=== PATIENT | male | born 1990 | race Caucasian/White ===

== ENCOUNTER 2018-04-10 23:19 | Emergency (ER) | payer OTHER ==
[~2018-04-10] VITALS: Ht 180.3 cm; Wt 130.9 kg
[2018-04-10 23:23] VITALS: BP 134/65; PULSE 91; RESP 18; TEMP 98.4; O2SAT 100
[2018-04-10] MEDS ORDERED: IBUP1TAB7 PO (23:36)
[2018-04-10] MEDS ORDERED: ROBA750T PO (23:36)
[2018-04-10] MEDS ORDERED: CYCLOBENZAPRINE HCL 10 MG TAB PO ONE (23:45)
[2018-04-10] MEDS ORDERED: IBUPROFEN 600 MG TAB PO ONE (23:45)
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
== END 2018-04-11 01:10 | disposition home or self-care (01) ==
LOC: NEPD 23:19
DX: M25.532 Pain in left wrist (principal); M79.605 Pain in left leg; M54.2 Cervicalgia; F17.290 Nicotine dependence, other tobacco product, uncomplicated; V53.5XXA Driver of pick-up truck or van injured in collision with car, pick-up truck or van in traffic accident, initial encounter
CPT/HCPCS: 72125; 73110; 73130; 73590